=== PATIENT | female | born 1965 | race Caucasian/White ===

== ENCOUNTER 2021-03-25 15:59 | Emergency (ER) | payer OTHER, SELFPAY ==
[2021-03-25 16:01] VITALS: BP 150/82; PULSE 75; RESP 20; TEMP 36.5; O2SAT 97; BMI 26.4
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
[2021-03-25] MEDS: Ondansetron 4 MG/2 ML Vial IV (16:41)
[2021-03-25] MEDS: Morphine 2 MG/ML Syringe IV ×2 (16:41→17:53)
[2021-03-25 16:51] VITALS: O2SAT 96
[2021-03-25 17:03] LABS: Basophil# 0.04 X10^3/uL; Basophil% 0.4 % (0-1); Eosinophil# 0.17 X10^3/uL; Eosinophils% 1.5 % (0-5); Hematocrit 33.6 % (37-47); Lymphocyte % 38.3 % (19-41); Mean Corp Hgb Conc 32.7 g/dL (32-36); Mean Corpuscular Hgb 28.1 pg (27.0-32.0); Mean Corpuscular Volume 85.7 fL (81-99); Mean Platelet Vol. 9.9 fl (6.2-12.0); Monocyte# 0.58 X10^3/uL; Monocyte% 5.2 % (0-10); NRBC Flagged by Analyzer 0 % (0-5); Neutrophil # 6.01 X10^3/uL (2.7-7.7); Neutrophil % 53.4 % (47-70); Platelet Count 391 K/mm3 (150-450); RBC Distribution Width CV 12.7 % (11.6-14.6); RBC Distribution Width SD 39.8 fl (35.1-43.9); Red Blood Count 3.92 M/mm3 (4.2-5.4); White Blood Count 11.2 K/mm3 (4.4-11.0)
[2021-03-25 17:17] VITALS: BP 114/72; PULSE 74; RESP 15; O2SAT 100
[2021-03-25 17:18] LABS: ALB/GLOB Ratio 0.8 RATIO (0.9-2.4); AST(SGOT) 51 U/L (15-37); Alanine Aminotransfer ALT/SGPT 46 U/L (13-56); Albumin, Serum 3.3 g/dL (3.2-5.0); Alkaline Phosphatase 67 U/L (45-117); Anion Gap 7 (5-15); BUN 23 mg/dL (7-18); BUN/Creat Ratio 24.9 RATIO (10-20); Calcium,Total 8.4 mg/dL (8.5-10.1); Chloride 103 mmol/L (98-107); Creatinine, Serum 0.92 mg/dL (0.55-1.02); EST Glomerular Filtration Rate 68 mL/min (>60); Est Glom Filt Rate - Afr Amer 82 mL/min (>60); Globulin 4.2 g/dL (2.2-4.2); Glucose 149 mg/dL (74-106); Lipase 138 U/L (73-393); Potassium 3.5 mmol/L (3.5-5.1); Protein, Total 7.5 g/dL (6.4-8.2); Sodium Level 138 mmol/L (136-145); Troponin-I HS 5 pg/mL (3.0-54.0)
--- NOTE | 2021-03-25 17:20 | RAD_ITS ---
STUDY: X-RAY - LEFT ANKLE REASON FOR EXAM: Female, 55 years old. injury TECHNIQUE: 3 view(s) of the ankle. COMPARISON: None. FINDINGS: Normal visualized distal tibia and fibula. Normal medial and lateral malleoli. Normal tibiotalar articulation and ankle mortise. Normal visualized talus and calcaneus. The visualized subtalar, talonavicular, calcaneocuboid and tarsal articulations are normal. Lateral soft tissue swelling consistent with ligamentous injury. RAD/Ankle min 3 Views IMPRESSION: No acute fracture or dislocation. Lateral soft tissue swelling consistent with ligamentous injury. Electronically Signed: Ti Ferrari MD at 17:31 EDT Tel , Service support ,
[2021-03-25 17:35] LABS: International Normalized Ratio 1.1; Prothrombin Time (Protime)PT. 13.7 SECONDS (11.7-14.9)
[2021-03-25 17:36] LABS: Partial Thromboplast Time 27.6 Seconds (24.1-36.2)
--- NOTE | 2021-03-25 18:21 | ED.RN ---
rn report given to sarah salter at [facility] with no questions or concerns.
== END 2021-03-25 18:22 | disposition short-term general hospital (02) ==
PROVIDERS: Emergency Provider Emergency Medicine
DX: S32.001A Stable burst fracture of unspecified lumbar vertebra, initial encounter for closed fracture (principal); S92.102A Unspecified fracture of left talus, initial encounter for closed fracture; S22.009A Unspecified fracture of unspecified thoracic vertebra, initial encounter for closed fracture; S32.009A Unspecified fracture of unspecified lumbar vertebra, initial encounter for closed fracture; V80.52XA Occupant of animal-drawn vehicle injured in collision with other specified motor vehicle, initial encounter
CPT/HCPCS: 70450; 71260; 72125; 73610; 74177; 80053; 83690; 84484; 85025; 85610; 85730; 96374; 96375; 96376; 99285; Q9967; A4216; J2405

== ENCOUNTER 2021-07-10 09:37 | Outpatient (RCR) | payer OTHER, SELFPAY ==
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
== END 2021-07-10 19:00 | disposition home or self-care (01) ==
LOC: PT 09:37
DX: Z98.1 Arthrodesis status (principal)
CPT/HCPCS: 97110; 97161